=== PATIENT | male | born 1965 | race Caucasian/White ===

== ENCOUNTER 2024-01-16 12:09 | Emergency (ER) | payer OTHER ==
[2024-01-16] MEDS ORDERED: Boostrix 0.5 ML (Tdap) VIAL (>/=7 yrs of age) ONE (12:33)
== END 2024-01-16 12:56 | disposition home or self-care (01) ==
LOC: MADERS 12:09
DX: S20.359A Superficial foreign body of unspecified front wall of thorax, initial encounter (principal); I10 Essential (primary) hypertension; Z79.899 Other long term (current) drug therapy; W26.8XXA Contact with other sharp object(s), not elsewhere classified, initial encounter; Y93.89 Activity, other specified
CPT/HCPCS: 10120; 90471; 90715